=== PATIENT | female | born 1995 | race African-American/Black ===

== ENCOUNTER 2016-11-15 23:00 | Emergency (ER) | payer SELFPAY ==
[~2016-11-15] VITALS: Ht 162.6 cm; Wt 71.0 kg
[2016-11-15 23:07] VITALS: Ht 162.6 cm; Wt 71.0 kg
--- NOTE | 2016-11-15 23:59 | ERA ---
ER Documentation Chief Complaint Date/Time DATE: 11/15/16 TIME: 23:58 Chief Complaint AP pain since Thursday HPI The patient is a 21-year-old female, presenting to the ER because of diffuse abdominal pain and more pain at epigastric abdominal pain intermittently for the last 6 days, associated with constipation, 12/29. She denies similar symptoms previously, denies fever, chills, neck pain, chest pain, dyspnea, dysuria. She does not smoke socially, drinks socially, smokes marijuana Past medical/surgical history: None ROS All systems reviewed and are negative except as per history of present illness. Medications Home Meds Active Scripts Ibuprofen* (Motrin*) 600 Mg Tab, 600 MG PO Q6H Y for PAIN AND OR ELEVATED TEMP, #30 TAB Prov:RADHA DIEZ MD 11/16/16 Polyethylene Glycol* (Miralax*) 17 Gm Powd.pack, 17 GM PO DAILY, #7 Prov:RADHA DIEZ MD 11/16/16 PMhx/Soc History of Surgery: No Anesthesia Reaction: No Hx Neurological Disorder: No Hx Respiratory Disorders: No Hx Cardiac Disorders: No Hx Psychiatric Problems: No Hx Miscellaneous Medical Probl: No Hx Alcohol Use: Yes Hx Substance Use: Yes (MARAJUANA RECREATIONALLY) Hx Tobacco Use: Yes (1-2/CIGS) Smoking Status: Current every day smoker Physical Exam Vitals Vital Signs Date Time Temp Pulse Resp B/P Pulse Ox O2 Delivery O2 Flow Rate FiO2 11/16/16 03:24 65 18 111/59 99 Room Air 11/15/16 23:07 99.1 92 18 123/72 99 Physical Exam Const: No acute distress. Head: Atraumatic. Eyes: Normal Conjunctiva. ENT: Normal External Ears, Nose and Mouth. Neck: Full range of motion. No meningismus. Resp: Clear to auscultation bilaterally. Cardio: Regular rate and rhythm, no murmurs. Abd: Soft, non distended, normal bowel sounds, diffuse and vague abdominal tenderness, no rigidity, rebound, CVA tenderness Skin: No petechiae or rashes. Back: No midline or flank tenderness. Ext: No cyanosis, or edema. Neur: Awake and alert. No focal deficit Psych: Normal Mood and Affect. Result Diagram: 11/16/16 0015 11/16/16 0015 Results 24 hrs Laboratory Tests Test 11/16/16 00:03 11/16/16 00:15 Bedside Urine pH (LAB) 6.0 Bedside Urine Protein (LAB) Trace Bedside Urine Glucose (UA) Negative Bedside Urine Ketones (LAB) Negative Bedside Urine Blood Negative Bedside Urine Nitrite (LAB) Negative Bedside Urine Leukocyte Esterase (L Trace White Blood Count 9.410^3/ul Red Blood Count 4.6610^6/ul Hemoglobin 10.7g/dl Hematocrit 34.6% Mean Corpuscular Volume 74.2fl Mean Corpuscular Hemoglobin 23.0pg Mean Corpuscular Hemoglobin Concent 30.9g/dl Red Cell Distribution Width 14.0% Platelet Count 67958^3/UL Mean Platelet Volume 11.0fl Neutrophils % 61.0% Lymphocytes % 28.7% Monocytes % 8.7% Eosinophils % 1.0% Basophils % 0.4% Nucleated Red Blood Cells % 0.0/100WBC Neutrophils # 5.810^3/ul Lymphocytes # 2.710^3/ul Monocytes # 0.810^3/ul Eosinophils # 0.110^3/ul Basophils # 0.010^3/ul Nucleated Red Blood Cells # 0.010^3/ul Sodium Level 146mmol/L Potassium Level 3.7mmol/L Chloride Level 103mmol/L Carbon Dioxide Level 28mmol/L Anion Gap 19 Blood Urea Nitrogen 9mg/dl Creatinine 0.73mg/dl Glucose Level 110mg/dl Calcium Level 9.6mg/dl Total Bilirubin 0.0mg/dl Direct Bilirubin 0.00mg/dl Indirect Bilirubin 0.0mg/dl Aspartate Amino Transf (AST/SGOT) 24IU/L Alanine Aminotransferase (ALT/SGPT) 32IU/L Alkaline Phosphatase 100IU/L Total Protein 8.6g/dl Albumin 4.4g/dl Globulin 4.20g/dl Albumin/Globulin Ratio 1.04 Lipase 70U/L Current Medications Medications (Trade) Dose Ordered Sig/Jason Route PRN Reason Start Time Stop Time Status Last Admin Dose Admin Morphine Sulfate (morphine) 4 mg ONCE STAT IV 11/16/16 00:05 11/16/16 00:08 DC 11/16/16 00:21 Ondansetron HCl (Zofran Inj) 4 mg ONCE STAT IV 11/16/16 00:05 11/16/16 00:08 DC 11/16/16 00:20 Pantoprazole 40 mg 40 mg ONCE ONCE IV 11/16/16 00:30 11/16/16 00:31 DC 11/16/16 00:20 Sodium Chloride (NS) 1,000 ml @ 1,000 mls/hr Q1H ONCE IV 11/16/16 00:30 11/16/16 01:29 DC 11/16/16 00:21 Procedures/MDM [address] [address] Radiology Main Line: [phone] DIAGNOSTIC IMAGING REPORT Patient: RONNIE HERRERA : 1995 Age: 21 Sex: F MR #: [id number] DOS: 11/16/16 0005 Ordering MD: RADHA DIEZ MD Location: E/R Room/Bed: PROCEDURE: ULTRASOUND LIMITED ABDOMEN CLINICAL INDICATION: 21-year-old female with abdominal pain. TECHNIQUE: Multiple sonographic of the right upper quadrant of the abdomen were obtained. The images were reviewed on a PACS workstation. COMPARISON: None. FINDINGS: The pancreas is partially visualized and is otherwise without abnormal echogenicity`. The liver displays normal echogenicity. The liver measures 15.1 cm in length. No evidence of intrahepatic biliary ductal dilatation is seen. The portal and hepatic veins are unremarkable. The gallbladder demonstrates no wall thickening, sludge, nor stones. No pericholecystic fluid is seen. The common bile duct measures 1.3 mm and is not dilated. The right kidney displays normal echogenicity. The right kidney measures 10.5 cm in maximal length. No caliectasis or hydronephrosis is seen. No free fluid is seen. IMPRESSION: Unremarkable right upper quadrant abdominal ultrasound. .Ruperto Trejo MD, Date Time Electronically viewed and signed by .Ruperto Trejo MD, on 11/16/2016 01:17 .M/ CC: RADHA DIEZ MD [address], [place] [address] Radiology Main Line: [phone] DIAGNOSTIC IMAGING REPORT Patient: RONNIE HERRERA : 1995 Age: 21 Sex: F MR #: [id number] [facility] #: [id number] DOS: 11/16/16 0005 Ordering MD: RADHA DIEZ MD Location: E/R Room/Bed: PROCEDURE: CT ABDOMEN/PELVIS WITHOUT CONTRAST CLINICAL INDICATION: 21-year-old female with abdominal pain. TECHNIQUE: The study was performed utilizing a [employer] VCT 64-slice CT scanner. Direct axial sections were obtained through the abdomen and pelvis without the use of intravenous contrast material. Sagittal and coronal reformations were obtained. One or more of the following dose reduction techniques were utilized: automated exposure control, adjustment of the mA and/ or kV according to patient's size or use of iterative reconstruction technique. The images were reviewed on a PACS workstation. CTD/vol = 11.8 mGy; Total Exam DLP = 666.2 mGy-cm. COMPARISON: Right upper quadrant ultrasound November 16, 2016. FINDINGS: There is trace bibasilar subsegmental atelectasis. There is no evidence for significant pleural effusion. The liver has a normal size and contour without focal areas of abnormal density. No intrahepatic nor extrahepatic biliary ductal dilatation is seen. The gallbladder demonstrates no wall thickening nor pericholecystic fluid. No biliary stones are evident. The pancreas is without areas of abnormal attenuation. The spleen is identified and has a normal size without abnormal density. The adrenal glands are unremarkable. The kidneys are without abnormal density. No hydroureteronephrosis nor nephroureterolithiasis is evident. The urinary bladder contains urine. There is mild retained stool without obstruction. The appendix is visualized and is without abnormal thickening or surrounding inflammatory reaction. The uterus is unremarkable. There is a right adnexal mass measuring approximately 6.2 x 4.3 x 5.0 cm which contains fat, soft tissue and calcifications most consistent with a dermoid. There is minimal pelvic free fluid. Shotty mesenteric lymph nodes are seen within the central mesentery. The aortoiliac vessels are without aneurysmal dilatation. The osseous structures are intact. An umbilical metallic piercing is noted. IMPRESSION: 1. No CT evidence for obstructive uropathy or renal calculi. 2. Mild retained stool without obstruction. 3. No CT evidence for appendicitis. 4. Shotty mesenteric lymph nodes. 5. Right adnexal mass containing fat, soft tissue and calcification consistent with a dermoid. 6. Minimal pelvic free fluid. .Ruperto Trejo MD, MD Date Time Electronically viewed and signed by .Ruperto Trejo MD, MD on 11/16/2016 01:42 .M/ CC: RADHA DIEZ MD MEDICAL MAKING DECISION: The patient is a 21-year-old female, presenting with acute abdominal pain, most likely due to constipation. She was treated with morphine 4 mg IV for pain, Zofran 4 mg IV for nausea and Protonix 40 mg IV for epigastric abdominal pain and 1 L normal saline for clinical dehydration with good response The differential diagnoses considered include but are not limited to cholelithiasis, cholecystitis, cystitis, pancreatitis, hepatitis, gastritis, peptic ulcer disease, gastric ulcer, appendicitis, diverticulitis, cholangitis, choledocholithiasis, partial small bowel obstruction. Departure Diagnosis: Primary Impression: Abdominal pain Additional Impressions: Constipation Dermoid Anemia Condition: Good Comments She was discharged with Motrin and MiraLAX I discussed the findings with the patient. I advised the patient to follow-up with the primary physician and her brand analyst in about 1-2 days, sooner if needed and return if any concern. The patient's blood pressure was elevated (>120/80) but appears stable without evidence of hypertension emergency or urgency. The patient was counseled about the risks of hypertension and urged to pursue outpatient monitoring and therapy within a week with their primary care physician. RADHA DIEZ MD November 15, 2016 23:58
[2016-11-16 00:01] LABS: URINE BLOOD (Dip) POC Negative (NEGATIVE)
[2016-11-16] MEDS ORDERED: morphine 4 MG/ML VIAL IV STA (00:05)
[2016-11-16] MEDS ORDERED: ONDANSETRON 4 MG INJ IV STA (00:05)
[2016-11-16] MEDS ORDERED: SOD CHLORIDE 0.9% 1,000 ML IV ONE (00:30)
[2016-11-16] MEDS ORDERED: PANTOPRAZOLE 40 MG INJ IV ONE (00:30)
[2016-11-16 01:01] LABS: ADD SCAN DIFF NO
[2016-11-16 01:03] LABS: BASOPHILS % 0.4 % (0.0-2.0); EOSINOPHILS # 0.1 10^3/ul (0.0-0.5); HEMATOCRIT 34.6 % (37.0-47.0); HEMOGLOBIN 10.7 g/dl (12.0-16.0); LYMPHOCYTES # 2.7 10^3/ul (0.8-2.9); LYMPHOCYTES % 28.7 % (15.0-51.0); MEAN CORPUSCULAR HGB CONC 30.9 g/dl (32.0-37.0); MEAN CORPUSCULAR VOLUME 74.2 fl (82.0-101.0); MONOCYTE # 0.8 10^3/ul (0.3-0.9); MONOCYTES % 8.7 % (0.0-11.0); NEUTROPHIL # 5.8 10^3/ul (1.6-7.5); PLATELET COUNT 367 10^3/UL (140-415); RED BLOOD COUNT 4.66 10^6/ul (4.20-5.40); WHITE BLOOD COUNT 9.4 10^3/ul (4.8-10.8)
--- NOTE | 2016-11-16 01:17 | RADRPT ---
PROCEDURE: ULTRASOUND LIMITED ABDOMEN CLINICAL INDICATION: 21-year-old female with abdominal pain. TECHNIQUE: Multiple sonographic of the right upper quadrant of the abdomen were obtained. The imag es were reviewed on a PACS workstation. COMPARISON: None. FINDINGS: The pancreas is partially visualized and is otherwise without abnormal echogenicity`. The liver displays normal echogenicity. The liver measures 15.1 cm in length. No evidence of intrah epatic biliary ductal dilatation is seen. The portal and hepatic veins are unremarkable. The gallbladder demonstrates no wall thickening, sludge, nor stones. No pericholecystic fluid is see n. The common bile duct measures 1.3 mm and is not dilated. The right kidney displays normal echogenicity. The right kidney measures 10.5 cm in maximal length. No caliectasis or hydronephrosis is seen. No free fluid is seen. IMPRESSION: Unremarkable right upper quadrant abdominal ultrasound. .Ruperto Trejo MD, MD Date Time Electronically viewed and signed by .Ruperto Trejo MD, on 11/16/2016 01:17 .M/
[2016-11-16 01:26] LABS: ALBUMIN 4.4 g/dl (3.3-4.9); ALBUMIN/GLOBULIN RATIO 1.04; CALCIUM 9.6 mg/dl (8.4-10.2); CREATININE 0.73 mg/dl (0.44-1.00); POTASSIUM 3.7 mmol/L (3.5-5.1); TOTAL PROTEIN 8.6 g/dl (6.1-8.1)
--- NOTE | 2016-11-16 01:43 | RADRPT ---
PROCEDURE: CT ABDOMEN/PELVIS WITHOUT CONTRAST CLINICAL INDICATION: 21-year-old female with abdominal pain. TECHNIQUE: The study was performed utilizing a [employer] VCT 64-slice CT scanner. Direct axia l sections were obtained through the abdomen and pelvis without the use of intravenous contrast mate rial. Sagittal and coronal reformations were obtained. One or more of the following dose reduction t echniques were utilized: automated exposure control, adjustment of the mA and/or kV according to pat ient's size or use of iterative reconstruction technique. [facility] CTD/vol = 11.8 mGy; Total Exam DLP = 666.2 mGy-cm. COMPARISON: Right upper quadrant ultrasound November 16, 2016. FINDINGS: There is trace bibasilar subsegmental atelectasis. There is no evidence for significant pleural eff usion. The liver has a normal size and contour without focal areas of abnormal density. No intrahep atic nor extrahepatic biliary ductal dilatation is seen. The gallbladder demonstrates no wall thicke alvino nor pericholecystic fluid. No biliary stones are evident. The pancreas is without areas of abno rmal attenuation. The spleen is identified and has a normal size without abnormal density. The adre nal glands are unremarkable. The kidneys are without abnormal density. No hydroureteronephrosis nor nephroureterolithiasis is evident. The urinary bladder contains urine. There is mild retained stool without obstruction. The appendix is visualized and is without abnormal thickening or surrounding in flammatory reaction. The uterus is unremarkable. There is a right adnexal mass measuring approximat marco 6.2 x 4.3 x 5.0 cm which contains fat, soft tissue and calcifications most consistent with a dermoid. There is minimal pelvic free fluid. Shotty mesenteric lymph nodes are seen within the cent ral mesentery. The aortoiliac vessels are without aneurysmal dilatation. The osseous structures are intact. An umbilical metallic piercing is noted. IMPRESSION: 1. No CT evidence for obstructive uropathy or renal calculi. 2. Mild retained stool without obstruction. 3. No CT evidence for appendicitis. 4. Shotty mesenteric lymph nodes. 5. Right adnexal mass containing fat, soft tissue and calcification consistent with a dermoid. 6. Minimal pelvic free fluid. .Ruperto Trejo MD, MD Date Time Electronically viewed and signed by .Ruperto Trejo MD, MD on 11/16/2016 01:42 ./
[2016-11-16] MEDS ORDERED: POLY17PO6 PO (03:05)
[2016-11-16] MEDS ORDERED: IBUP-1542 PO (03:05)
[2016-11-16 03:24] VITALS: BP 111/59; PULSE 65; RESP 18
== END 2016-11-16 03:25 | disposition home or self-care (01) ==
LOC: E/R 23:00
DX: R10.84 Generalized abdominal pain (principal); K59.00 Constipation, unspecified; D28.7 Benign neoplasm of other specified female genital organs; F17.210 Nicotine dependence, cigarettes, uncomplicated; D64.9 Anemia, unspecified
CPT/HCPCS: 74176; 76705; 80053; 81003; 83690; 85025; J2270; J2405; J7030; 36415; 96374; 96375